=== PATIENT | male | born 1975 | race African-American/Black ===

== ENCOUNTER 2019-05-28 09:21 | Day surgery (SDC) | payer BC ==
[2019-05-24 14:14] VITALS: BMI 36.2
[~2019-05-28 09:21] MED LIST: LIDOCAINE 1% 20 ML VIAL (10MG/ML) FOR IV START INTRADERMA PRN
[2019-05-28 10:17] VITALS: TEMP 97.4
[2019-05-28] MEDS: LACTATED RINGERS 1,000 ML IV SCH ×2 (10:21→10:23)
[2019-05-28] MEDS ORDERED: LIDOCAINE 1% INJ 10MG/ML (20 ML MDV) ONE (10:25)
[2019-05-28] MEDS ORDERED: PROPOFOL 10 MG/ML 20 ML VIAL IV ONE (10:25)
--- NOTE | 2019-05-28 10:32 | P.GSHP ---
History of Present Illness H&P Date: 05/28/19 Chief Complaint: History of diverticulitis Is a 44-year-old male. History of diverticulitis. Patient is today for colonoscopy. Past Medical History Past Medical History: Hypertension Additional Past Medical History / Comment(s): no Rx for BP-doctor is monitoring, hx intestinal blockage History of Any Multi-Drug Resistant Organisms: None Reported Past Surgical History: Bowel Resection Additional Past Surgical History / Comment(s): colonoscopy, Past Anesthesia/Blood Transfusion Reactions: No Reported Reaction Smoking Status: Never smoker - Past Family History Mother Family Medical History: No Reported History Medications and Allergies Home Medications Medication Instructions Recorded Confirmed Type Cannabidiol (Cbd) Extract 0 mg PO DIRECTED PRN 05/24/19 05/28/19 History [Epidiolex] L.acidoph,Paracasei, B.lactis 1 each PO DAILY 05/24/19 05/28/19 History [Probiotic] Multivitamins, Thera [Multivitamin 1 tab PO DAILY 05/24/19 05/28/19 History (formulary)] Testosterone Booster 1 tab PO DIRECTED 05/24/19 05/28/19 History Allergies Allergy/AdvReac Type Severity Reaction Status Date / Time No Known Allergies Allergy Verified 05/28/19 10:07 Surgical - Exam Vital Signs Temp Pulse Resp BP Pulse Ox 97.4 F L 116 H 20 146/87 95 05/28/19 10:13 05/28/19 10:13 05/28/19 10:13 05/28/19 10:13 05/28/19 10:13 - General well developed, well nourished, no distress - Eyes PERRL - ENT normal pinna - Neck no masses - Respiratory normal expansion - Cardiovascular Rhythm: regular - Abdomen Abdomen: soft, non tender Assessment and Plan Assessment: History of diverticulitis. We'll perform colonoscopy.
--- NOTE | 2019-05-28 10:43 | P.OP ---
Date of Procedure: 05/28/19 Preoperative Diagnosis: History of diverticulitis Postoperative Diagnosis: Mild diverticulosis Procedure(s) Performed: Colonoscopy Anesthesia: MAC Surgeon: Minh Santos Pathology: none sent Condition: stable Disposition: PACU Description of Procedure: The patient's placed on the endoscopy table lateral position. He received IV sedation. Digital rectal exam was performed which revealed no abnormalities. The flexible colonoscope was then placed patient anus passed throughout the entire colon. The ileocecal valve was visualized. Cecum, ascending and transverse colon appeared normal. In the descending and sigmoid colon is mild scattered diverticula. There is no evidence of diverticula is. The scope was then brought back the rectum and this appeared normal. Scope was withdrawn for patient.
[2019-05-28] MEDS ORDERED: IV FLUID CONTINUATION 1,000 ML IV ONE (10:44)
[2019-05-28 10:47] VITALS: PULSE 90; RESP 18
[2019-05-28 11:02] VITALS: BP 105/60
== END 2019-05-28 11:17 | disposition home or self-care (01) ==
LOC: ORWHC2ENDO 09:21
PROVIDERS: ATTEND Surgery
DX: K57.30 Diverticulosis of large intestine without perforation or abscess without bleeding (principal); I10 Essential (primary) hypertension; Z90.49 Acquired absence of other specified parts of digestive tract; Z79.890 Hormone replacement therapy
CPT/HCPCS: 45378; J2001; J2704

== ENCOUNTER 2022-12-30 08:47 | Day surgery (SDC) | payer BC ==
[2022-12-30] MEDS ORDERED: LACTATED RINGERS 1,000 ML IV SCH (09:18)
[2022-12-30 09:35] VITALS: TEMP 97.2
[2022-12-30 09:44] LABS: Glucose,Whole Blood 102 mg/dL (70-110)
[2022-12-30] MEDS ORDERED: PROPOFOL 10 MG/ML 20 ML VIAL IV ONE (09:54)
--- NOTE | 2022-12-30 09:56 | P.GSHP ---
History of Present Illness H&P Date: 12/30/22 Chief Complaint: Positive colon guard test Is a 47-year-old male had recent positive colon guard test. Patient presents today for screening colonoscopy. Past Medical History Past Medical History: Diabetes Mellitus, Hyperlipidemia, Hypertension Additional Past Medical History / Comment(s): type 2, hx intestinal blockage, recent blood in stool History of Any Multi-Drug Resistant Organisms: None Reported Past Surgical History: Bowel Resection Additional Past Surgical History / Comment(s): colonoscopy Past Anesthesia/Blood Transfusion Reactions: No Reported Reaction Smoking Status: Never smoker - Past Family History Mother Family Medical History: No Reported History Medications and Allergies Home Medications Medication Instructions Recorded Confirmed Type Multivitamins, Thera [Multivitamin 1 tab PO DAILY 05/24/19 12/29/22 History (formulary)] Atorvastatin Calcium [Lipitor] 80 mg PO DAILY 12/29/22 12/29/22 History Empagliflozin [Jardiance] 25 mg PO DAILY 12/29/22 12/29/22 History Sildenafil Citrate [Sildenafil] 20 mg PO DIRECTED PRN 12/29/22 12/29/22 History Ubidecarenone [Co Q-10] 300 mg PO DAILY 12/29/22 12/29/22 History amLODIPine [Norvasc] 10 mg PO DAILY 12/29/22 12/29/22 History lisinopriL 40 mg PO DAILY 12/29/22 12/29/22 History metFORMIN HCL [Glucophage] 1,000 mg PO DAILY 12/29/22 12/29/22 History Allergies Allergy/AdvReac Type Severity Reaction Status Date / Time No Known Allergies Allergy Verified 12/29/22 11:08 Surgical - Exam Vital Signs Temp Pulse Resp BP Pulse Ox 97.2 F L 65 16 138/85 98 12/30/22 09:33 12/30/22 09:33 12/30/22 09:33 12/30/22 09:33 12/30/22 09:33 - General well developed, well nourished, no distress - Eyes PERRL - ENT normal pinna - Neck no masses - Respiratory normal expansion - Cardiovascular Rhythm: regular - Abdomen Abdomen: soft, non tender Assessment and Plan Assessment: Positive colon guard test. We'll perform colonoscopy.
--- NOTE | 2022-12-30 10:11 | P.OP ---
Date of Procedure: 12/30/22 Preoperative Diagnosis: Positive colon guard test Postoperative Diagnosis: Diverticulosis Procedure(s) Performed: Colonoscopy Anesthesia: MAC Surgeon: Minh Santos Pathology: none sent Condition: stable Disposition: PACU Description of Procedure: The patient's placed on the endoscopy table in the lateral position. He received IV sedation. Digital rectal exam performed. There were a few external hemorrhoids. Flexible colonoscope was then placed patient anus passed throughout the entire colon. The ileocecal valve was visualized. The cecum, ascending and transverse colon appeared normal. The descending and sigmoid colon had a few scattered diverticula. The scope was then brought back the r ectum. This appeared normal. Scope withdrawn for patient.
[2022-12-30 10:27] VITALS: BP 162/81; PULSE 74; RESP 14
== END 2022-12-30 11:01 | disposition home or self-care (01) ==
LOC: ORWHC2ENDO 08:47
PROVIDERS: ATTEND Surgery
DX: K57.30 Diverticulosis of large intestine without perforation or abscess without bleeding (principal); K64.4 Residual hemorrhoidal skin tags; E11.9 Type 2 diabetes mellitus without complications; I10 Essential (primary) hypertension; E78.5 Hyperlipidemia, unspecified; Z98.890 Other specified postprocedural states; Z79.84 Long term (current) use of oral hypoglycemic drugs; Z79.899 Other long term (current) drug therapy
CPT/HCPCS: 45378; J2704